=== PATIENT | male | born 1965 | race Caucasian/White ===

== ENCOUNTER → 2016-10-28 | Outpatient (CLI) | payer MEDICARE ==
[~2016-10-28] MED LIST: ALBU6.7H IH; ALFU10TA PO; ALLO300T2 PO; ARIP5TAB5 PO; BACL20TA PO; CIPR750T23 PO; CLOP75TA3 PO; DESV100T PO; DUTA0.5C PO; FLC1T PO; FLUT12AE4 IH; FLUT16SP NS; FLUT1DIS IH; GFN600TCR PO; KETO200C PO; METH10TA2 PO; METO5TAB6 PO; MNTL10T PO; MODA200T12 PO; MOXI400T PO; MTH10T PO; MULT1CAP27 PO; NIAC1000 PO; NIAC1TBM27 PO; NITR0.4T SL; OXYC1TAB95 PO; POTA20TA12 PO; PRAM0.12 PO; PREG300C PO; ROFL500T PO; TIOT18CA IH; VERA240C10 PO; VITA-189 PO; [UNRECOGNIZED DRUG - CODE] PO
--- NOTE | 2016-10-28 13:39 | Diagnostic Imaging Report ---
PROCEDURE: CT abdomen with and without contrast. TECHNIQUE: Multiple contiguous axial CT images of the abdomen were obtained prior to and after intravenous administration of iodinated contrast. INDICATION: Left upper quadrant. Patient fell on stairs a few days ago. Comparison with 01/08/2016. FINDINGS: The lung bases are clear. No pleural effusions or pneumothorax. Bone windows show no evidence of rib fractures within the lower ribs. The spleen appears normal with contrast with no evidence of visceral laceration. The kidneys show no evidence of laceration. There is a cyst in the lower pole of the left kidney measuring 1.5 cm. Liver appears normal. Gallbladder is absent. Bile ducts are not dilated. The pancreas is normal. The aorta and abdominal vessels enhance in a normal fashion with mild atherosclerotic disease. There is metallic artifact from fusion of the lumbar spine with pedicle screws and laminectomy. Anterior fusion noted as well. The stomach and small bowel are not distended. The colon shows normal stool and gas pattern. IMPRESSION: 1. No acute abnormalities are demonstrated. In particular, there is no evidence of splenic laceration. 2. Overall appearance is stable when compared with previous exam. Dictated by: Dictated on workstation # [id number]
== END ==
LOC: RAD 12:44
PROVIDERS: ATTEND Family Medicine
DX: R10.12 Left upper quadrant pain (principal); W10.9XXD Fall (on) (from) unspecified stairs and steps, subsequent encounter
CPT/HCPCS: 74170; Q9967

== ENCOUNTER 2016-11-03 22:48 | Emergency (ER) | payer MEDICARE ==
[~2016-11-03] VITALS: Ht 175.3 cm; Wt 76.7 kg
[2016-11-03] MEDS ORDERED: PREG300C PO (22:59)
[2016-11-03] MEDS ORDERED: ROFL500T PO (22:59)
[2016-11-03] MEDS ORDERED: ALBUTEROL/IPRATROPIUM 3MG-0.5MG/3ML (DUONEB) NEB VIAL INH ONE (23:10)
[2016-11-03] MEDS ORDERED: methylPREDNISolone 125 MG (Solu-MEDROL) VIAL IV ONE (23:10)
[2016-11-03] MEDS: SODIUM CHLORIDE FLUSH 10 ML SYR IV PRN (23:26)
[2016-11-03 23:32] LABS: MEAN CORPUSCULAR HEMOGLOBIN 30.2 PG (26.0-34.0); MEAN CORPUSCULAR VOLUME 89 FL (80-100); MEAN PLATELET VOLUME 10.7 FL (6.0-9.5); PLATELET COUNT 157 10^3uL (150-450)
[2016-11-03 23:41] LABS: ANION GAP 12.8 MEQ/L (3-15)
[2016-11-03 23:45] LABS: BAND NEUTROPHILS % 1 % (0-6); EOSINOPHILS % 4 % (0-4); LYMPHOCYTES # 1.4 #; MONOCYTES # 0.9 #; MONOCYTES % 13 % (3-11); SEGMENTED NEUTROPHILS % 62 % (51-67); TOTAL CELLS COUNTED 100
[2016-11-03 23:46] LABS: RBC MORPH NORMAL (NORMAL)
[2016-11-03] MEDS ORDERED: LEVOFLOXACIN 500 MG/100 ML IV 100 ML IV ONE (23:55)
[2016-11-03] MEDS ORDERED: diphenhydrAMINE 50 MG/ML INJ (BENADRYL) IV ONE (23:55)
[2016-11-04] MEDS: SODIUM CHLORIDE FLUSH 10 ML SYR IV PRN (00:06)
[2016-11-04] MEDS ORDERED: IPRA3AMP11 INH (00:10)
[2016-11-04] MEDS ORDERED: LVF500T PO (00:10)
[2016-11-04 01:22] VITALS: BP 107/58
--- NOTE | 2016-11-04 07:06 | Diagnostic Imaging Report ---
INDICATION: Lower respiratory infection. PA and lateral chest. FINDINGS: Patient has a pectus deformity of the chest. Heart size and pulmonary vascularity are normal. There are no infiltrates, effusions or pneumothoraces. IMPRESSION: No acute abnormalities in the chest. Dictated by: Dictated on workstation # [id number]
== END 2016-11-04 01:15 | disposition home or self-care (01) ==
LOC: ED 22:49
DX: J44.1 Chronic obstructive pulmonary disease with (acute) exacerbation (principal); J18.9 Pneumonia, unspecified organism; F17.210 Nicotine dependence, cigarettes, uncomplicated
CPT/HCPCS: 36415; 71020; 80048; 85025; 94640; 96365; 96375; 99284; J1200; J1956; J2930; 85007; 99283